=== PATIENT | female | born 1985 | race African-American/Black ===

== ENCOUNTER 2016-11-11 08:45 | Emergency (ER) | payer OTHER, SELFPAY ==
[2016-11-11] MEDS ORDERED: Ketorolac Tromethamine 30 MG/ML VIAL ONE (09:15)
[2016-11-11] MEDS ORDERED: Dexamethasone 4 mg/ml Vial ONE (09:56)
== END 2016-11-11 10:15 | disposition home or self-care (01) ==
LOC: NAV ERS 08:45
DX: J02.9 Acute pharyngitis, unspecified (principal)
CPT/HCPCS: 87081; 87430; 96372; J1100; J1885

== ENCOUNTER 2019-02-04 18:00 | Emergency (ER) | payer SELFPAY | END 2019-02-04 18:34 | disposition home or self-care (01) | LOC: NAV ERS 18:00 | DX: J06.9 Acute upper respiratory infection, unspecified (principal); I10 Essential (primary) hypertension; Z79.899 Other long term (current) drug therapy | CPT/HCPCS: 99283 ==

== ENCOUNTER 2019-04-06 11:51 | Emergency (ER) | payer BC, SELFPAY | END 2019-04-06 12:45 | disposition home or self-care (01) | LOC: NAV ERS 11:51 | DX: B34.9 Viral infection, unspecified (principal); I10 Essential (primary) hypertension; E66.9 Obesity, unspecified; Z79.899 Other long term (current) drug therapy | CPT/HCPCS: 87081; 87430; 87804; 99283 ==

== ENCOUNTER 2022-01-08 18:55 | Emergency (ER) | payer SELFPAY ==
[2022-01-08] MEDS ORDERED: Fluorescein Opthalmic Strip ONE (19:31)
[2022-01-08] MEDS ORDERED: Tetracaine 0.5% PF 4 ML BOT ONE (19:31)
[2022-01-08] MEDS ORDERED: Acetaminophen 500 MG TAB ONE (20:50)
== END 2022-01-08 21:15 | disposition home or self-care (01) ==
LOC: NAV ERS 18:55
DX: S05.02XA Injury of conjunctiva and corneal abrasion without foreign body, left eye, initial encounter (principal); I10 Essential (primary) hypertension
CPT/HCPCS: 70486